=== PATIENT | female | born 1980 | race African-American/Black ===

== ENCOUNTER 2018-01-18 00:12 | Emergency (ER) | payer OTHER ==
[~2018-01-18] VITALS: Ht 162.6 cm; Wt 123.8 kg
--- NOTE | 2018-01-18 00:37 | ED.ADGEN ---
Past History Past Medical History: Anemia, Hypertension, STD, Other Past Surgical History: Adult General Chief Complaint Chief Complaint ".. My back is on fire.. I got this area on my back ... that feels like someone is pouring hot burning liquid on my back.. it rivera.. it itches.. I can't even let touch the clothes.. can't have anything against it..." HPI HPI Patient is a 37 year old female who presents with the above hx complaints. Pt. has developed severe back pain, along L 1 Dermatone on the Rt. . There is a erythemic red rash developing in this area. Lite touch to area causes severe pain. Pt denies any health problems, except with G6PD drugs. Pt. denies immunosuppression. Recent C- section - 01/03. G3 T3. Pt. recently taken of Procardia for HTN. Pt. is breast feeding. Pt. did have chicken pox as child. No hx travel or specific ill contacts. Pt. get her care at . Review of Systems Review of Systems Constitutional: Denies fever or chills [] Eyes: Denies change in visual acuity, redness, or eye pain [] HENT: Denies nasal congestion or sore throat [] Respiratory: Denies cough or shortness of breath [] Cardiovascular: No additional information not addressed in HPI [] GI: Denies abdominal pain, nausea, vomiting, bloody stools or diarrhea [] : Denies dysuria or hematuria [] Musculoskeletal: complailnts of back pain Integument: Denies rash or skin lesions [] Neurologic: Denies headache, focal weakness or sensory changes [] Endocrine: Denies polyuria or polydipsia [] All other systems were reviewed and found to be within normal limits, except as documented in this note. Family History Family History Non-contributory Current Medications Current Medications Current Medications Medications (Trade) Dose Ordered Sig/Blue Start Time Stop Time Status Last Admin Dose Admin Acyclovir (Zovirax) 800 mg 1X ONCE 01/18/18 01:30 01/18/18 02:00 DC 01/18/18 01:58 800 MG Oxycodone/ Acetaminophen (Percocet 10/325) 1 tab 1X ONCE 01/18/18 02:00 01/18/18 02:01 DC 01/18/18 01:58 1 TAB See Nursing for home meds. Allergies Allergies Allergies Coded Allergies Type Severity Reaction Last Updated Verified Sulfa (Sulfonamide Antibiotics) Allergy Unknown 01/18/18 Yes Uncoded Allergies Type Severity Reaction Last Updated Verified G6PD Allergy Unknown 01/18/18 Physical Exam Physical Exam Constitutional: in acute distress, non-toxic appearance. [] HENT: Normocephalic, atraumatic, bilateral external ears normal, oropharynx moist, no oral exudates, nose normal. [] Eyes: PERRLA, EOMI, conjunctiva normal, no discharge. [] Neck: Normal range of motion, no tenderness, supple, no stridor. [] Cardiovascular:Heart rate regular rhythm, no murmur [] Lungs & Thorax: Bilateral breath sounds clear to auscultation [] Abdomen: Bowel sounds normal, soft, no tenderness, no masses, no pulsatile masses. []Obese. Healing scar. Skin: Warm, dry, no erythema, zoster rash Rt. flank Back: No tenderness, no CVA tenderness. [] Except findings of early zoster Rt. L 1 dermatone. Extremities: No tenderness, no cyanosis, no clubbing, ROM intact, no edema. [] No pain with straight leg lift or along Rt sciatica nerve. Neurologic: Alert and oriented X 3, normal motor function, normal sensory function, no focal deficits noted. [] Psychologic: Affect anxious, judgement normal, mood normal. [] Current Patient Data Lab Results Laboratory Tests Test 01/18/18 00:55 01/18/18 01:20 Urine Collection Type Void Urine Color Straw Urine Clarity Cloudy Urine pH 6.5 Urine Specific [place] 1.015 Urine Protein 30 mg/dl (NEG-TRACE) Urine Glucose (UA) Neg mg/dL (NEG) Urine Ketones (Stick) Neg mg/dL (NEG) Urine Blood Large (NEG) Urine Nitrite Neg (NEG) Urine Bilirubin Neg (NEG) Urine Urobilinogen Dipstick 0.2 mg/dL (0.2 mg/dL) Urine Leukocyte Esterase Mod (NEG) Urine RBC 11-20 /HPF (0-2) Urine WBC 11-20 /HPF (0-4) Urine Squamous Epithelial Cells Mod /LPF Urine Bacteria Few /HPF (0-FEW) Urine Mucus Mod /LPF Urine Trichomonas Present Urine Test Negative (NEG) Total Bilirubin 0.3 mg/dL (0.2-1.0) Direct Bilirubin 0.1 mg/dL (0.0-0.2) Aspartate Amino Transferase (AST) 20 U/L (15-37) Alanine Aminotransferase (ALT) 21 U/L (14-59) Alkaline Phosphatase 90 U/L (46-116) Total Protein 7.5 g/dL (6.4-8.2) Albumin 3.5 g/dL (3.4-5.0) White Blood Count 6.4 x10^3/uL (4.0-11.0) Red Blood Count 4.39 x10^6/uL (3.50-5.40) Hemoglobin 11.3 g/dL (12.0-15.5) L Hematocrit 35.0 % (36.0-47.0) L Mean Corpuscular Volume 80 fL (79-100) Mean Corpuscular Hemoglobin 26 pg (25-35) Mean Corpuscular Hemoglobin Concent 32 g/dL (31-37) Red Cell Distribution Width 15.5 % (11.5-14.5) H Platelet Count 426 x10^3/uL (140-400) H Neutrophils (%) (Auto) 43 % (31-73) Lymphocytes (%) (Auto) 42 % (24-48) Monocytes (%) (Auto) 8 % (0-9) Eosinophils (%) (Auto) 6 % (0-3) H Basophils (%) (Auto) 1 % (0-3) Neutrophils # (Auto) 2.8 x10^3uL (1.8-7.7) Lymphocytes # (Auto) 2.7 x10^3/uL (1.0-4.8) Monocytes # (Auto) 0.5 x10^3/uL (0.0-1.1) Eosinophils # (Auto) 0.4 x10^3/uL (0.0-0.7) Basophils # (Auto) 0.1 x10^3/uL (0.0-0.2) Sodium Level 142 mmol/L (136-145) Potassium Level 3.1 mmol/L (3.5-5.1) L Chloride Level 103 mmol/L (98-107) Carbon Dioxide Level 32 mmol/L (21-32) Anion Gap 7 (6-14) Blood Urea Nitrogen 16 mg/dL (7-20) Creatinine 0.8 mg/dL (0.6-1.0) Estimated GFR (Cockcroft-Gault) 98.2 Glucose Level 99 mg/dL (70-99) Calcium Level 9.3 mg/dL (8.5-10.1) EKG EKG [] Radiology/Procedures Radiology/Procedures [] Course & Med Decision Making Course & Med Decision Making Pertinent Labs and Imaging studies reviewed. (See chart for details). Suspect on set of Zoster- will start Acyclovir 800 every 4 hrs or 5 x day x 7 days. Percocet for severe pain. Reviewed risks if blister appear. Contact precautions. Discussed risks of G6PD reaction. Must follow up. Discussed risks of breast feeding. Tx. Trichomonas after complete the Acyclovir tx. Must follow up the urine cultures, HTN, anemia and hypokalemia with primary. Return if any concerns. [] Final Impression Final Impression 1. Back Pain[] 2. Zoster- Rt L1 Dermatone 3. Trichomonas 4. HTN 6. Anemia 7. Hypokalemia Dragon Disclaimer Dragon Disclaimer This electronic medical record was generated, in whole or in part, using a voice recognition dictation system. NASRA ROBERTSON MD Jan 18, 2018 00:37
[2018-01-18] MEDS ORDERED: ACYCLOVIR 200 MG CAPSULE PO ONE (01:30)
[2018-01-18] MEDS ORDERED: ACYC800T PO (01:34)
[2018-01-18] MEDS ORDERED: OXYC-323 PO (01:35)
[2018-01-18 01:36] LABS: BASO # 0.1 x10^3/uL (0.0-0.2); BASO % 1 % (0-3); EOS # 0.4 x10^3/uL (0.0-0.7); EOS % 6 % (0-3); HEMOGLOBIN 11.3 g/dL (12.0-15.5); LYMPH # 2.7 x10^3/uL (1.0-4.8); LYMPH % 42 % (24-48); MEAN CORPUSCULAR HEMOGLOBIN 26 pg (25-35); MEAN CORPUSCULAR HGB CONC 32 g/dL (31-37); MEAN CORPUSCULAR VOLUME 80 fL (79-100); MONO # 0.5 x10^3/uL (0.0-1.1); MONO % 8 % (0-9); NEUT # 2.8 x10^3uL (1.8-7.7); NEUT % 43 % (31-73); PLATELET COUNT 426 x10^3/uL (140-400); RED BLOOD COUNT 4.39 x10^6/uL (3.50-5.40); RED CELL DISTRIBUTION WIDTH 15.5 % (11.5-14.5); WHITE BLOOD COUNT 6.4 x10^3/uL (4.0-11.0)
[2018-01-18 01:39] LABS: CALCIUM 9.3 mg/dL (8.5-10.1); CREATININE 0.8 mg/dL (0.6-1.0); GFR 98.2; POTASSIUM 3.1 mmol/L (3.5-5.1)
[2018-01-18] MEDS ORDERED: oxyCODONE/APAP 10/325 1 TAB TABLET PO ONE (02:00)
[2018-01-18 02:02] LABS: ALBUMIN 3.5 g/dL (3.4-5.0); DIRECT BILIRUBIN 0.1 mg/dL (0.0-0.2); TOTAL BILIRUBIN 0.3 mg/dL (0.2-1.0); TOTAL PROTEIN 7.5 g/dL (6.4-8.2)
[2018-01-18 02:10] LABS: BILIRUBIN,URINE NEG (NEG); CLARITY,URINE CLOUDY; COLOR,URINE STRAW; GLUCOSE,URINE NEG (NEG); UROBILINOGEN,URINE 0.2 mg/dL (0.2 mg/dL)
[2018-01-18 02:11] LABS: BACTERIA,URINE FEW /HPF (0-FEW); NITRITE,URINE NEG (NEG); SQUAMOUS EPITHELIAL CELL,UR MOD /LPF; TRICHOMONAS,URINE PRESENT; U PREG PATIENT NEGATIVE (NEG)
[2018-01-18] MEDS ORDERED: METR70GE14 VG (02:28)
[2018-01-18 02:51] VITALS: BP 171/109
== END 2018-01-18 03:01 | disposition home or self-care (01) ==
LOC: ER 00:12
DX: O90.89 Other complications of the puerperium, not elsewhere classified (principal); M54.5 Low back pain; O98.53 Other viral diseases complicating the puerperium; A59.9 Trichomoniasis, unspecified; O90.81 Anemia of the puerperium; O16.5 Unspecified maternal hypertension, complicating the puerperium; E87.6 Hypokalemia; Z98.890 Other specified postprocedural states; Z88.2 Allergy status to sulfonamides
CPT/HCPCS: 36415; 80048; 80076; 81001; 81025; 85025; 87086; 99284

== ENCOUNTER 2018-04-20 23:32 | Emergency (ER) | payer OTHER ==
[~2018-04-20] VITALS: Ht 162.6 cm; Wt 127.0 kg
[~2018-04-20 23:32] MED LIST: ACYC800T PO; METR70GE14 VG; OXYC-323 PO
--- NOTE | 2018-04-21 | PHYS DOC ---
Past History Past Medical History: Anemia, Diabetes, Hypertension, STD, Other Past Surgical History: Alcohol Use: None Drug Use: None Adult General Chief Complaint Chief Complaint: MECHANICAL FALL HPI HPI Patient is a 37-year-old female who presents with complaint of headache and right shoulder pain after slipping and falling down stairs yesterday. Patient indicates that she had struck the back of her head against one of the steps. She denies any loss of consciousness but does indicate that she has a bad headache at this time. Patient also complains of pain in her right shoulder that she rates as being moderate, stating that pain is significantly worsened with movement of the shoulder. She states that when she fell she reached up and grabbed the handrail which she thinks was what had injured her shoulder. Review of Systems Review of Systems Constitutional: Denies fever or chills [] Eyes: Denies change in visual acuity, redness, or eye pain [] Respiratory: Denies cough or shortness of breath [] Cardiovascular: No additional information not addressed in HPI [] GI: Denies abdominal pain, nausea, vomiting [] Musculoskeletal: Complains of right shoulder pain and mild mid back pain. [] Neurologic: Complains of headache[] Allergies Allergies Allergies Coded Allergies Type Severity Reaction Last Updated Verified Sulfa (Sulfonamide Antibiotics) Allergy Unknown 01/18/18 Yes Uncoded Allergies Type Severity Reaction Last Updated Verified G6PD Allergy Unknown 01/18/18 Physical Exam Physical Exam Constitutional: Well developed, well nourished, no acute distress, non-toxic appearance. [] HENT: Normocephalic, atraumatic, bilateral external ears normal, oropharynx moist, no oral exudates, nose normal. [] Eyes: PERRLA, EOMI, conjunctiva normal, no discharge. [] Neck: Normal range of motion, no tenderness, supple. [] Cardiovascular:Heart rate regular rhythm [] Lungs & Thorax: Bilateral breath sounds clear to auscultation [] Skin: Warm, dry, no erythema, no rash. [] Back: No spinous point tenderness. [] Extremities: Right shoulder demonstrates decreased range of motion with tenderness anteriorly and posteriorly. [] Current Patient Data Vital Signs Vital Signs Date Time Temp Pulse Resp B/P (MAP) Pulse Ox O2 Delivery O2 Flow Rate FiO2 04/20/18 23:42 98.3 99 22 97 Room Air EKG EKG [] Radiology/Procedures Radiology/Procedures [] Impressions: CT head without contrast demonstrates no acute intracranial abnormalities. X- ray of the right shoulder demonstrates no acute bony abnormalities. Course & Med Decision Making Course & Med Decision Making Pertinent Labs and Imaging studies reviewed. (See chart for details) Patient placed in right arm sling by ER nurse. Noemi Disclaimer Noemi Disclaimer This electronic medical record was generated, in whole or in part, using a voice recognition dictation system. Departure Departure: Impression: Primary Impression: Sprain of right shoulder Additional Impression: Closed head injury Disposition: HOME, SELF-CARE Condition: STABLE Referrals: PCP,NO (PCP) Patient Instructions: Head Injury, Adult, Shoulder Sprain Scripts Naproxen (NAPROSYN) 500 Mg Tablet 1 TAB PO BID PRN for PAIN, #20 TAB Prov: KATI AGUAYO Jr. DO 04/21/18 Tramadol Hcl (TRAMADOL HCL) 50 Mg Tablet 50 MG PO PRN Q6HRS PRN for PAIN, #10 TAB Prov: KATI AGUAYO Jr. DO 04/21/18 Problem Qualifiers Primary Impression: Sprain of right shoulder Encounter type: initial encounter Shoulder sprain type: unspecified sprain Qualified Codes: S43.401A - Unspecified sprain of right shoulder joint, initial encounter Additional Impression: Closed head injury Encounter type: initial encounter Qualified Codes: S09.90XA - Unspecified injury of head, initial encounter KATI AGUAYO Jr. DO Apr 21, 2018 00:00
--- NOTE | 2018-04-21 00:32 | RAD ---
INDICATION: Fall 04/19/18, hit posterior head, severe headache COMPARISON: None. TECHNIQUE: Axial CT images obtained through the head without intravenous contrast. One or more of the following individualized dose reduction techniques were utilized for this examination: 1. Automated exposure control; 2. Adjustment of the mA and/or kV according to patient size; 3. Use of iterative reconstruction technique. FINDINGS: No intracranial hemorrhage. No midline shift. Basal cisterns patent. Ventricles and sulci are unremarkable. No acute osseous abnormality. Orbits and paranasal sinuses unremarkable. IMPRESSION: 1. No acute intracranial hemorrhage. Electronically signed by: Humberto Parisi MD (04/21/2018 12:29 AM) [id number]
[2018-04-21] MEDS ORDERED: NAPR-683 PO (00:44)
[2018-04-21] MEDS ORDERED: TRAM50TA PO (00:44)
[2018-04-21 01:00] VITALS: BP 180/92
--- NOTE | 2018-04-21 07:52 | RAD ---
Examination: SHOULDER 2+V RIGHT History: Fall 04/19/18, right shoulder pain Comparison/Correlation: None Findings: Total 3 images of the right shoulder were obtained. Joint spaces are normal. No acute fracture or bony destructive change. Soft tissues are normal. No degenerative changes. Right lung apex is unremarkable. Impression: No fracture. Electronically signed by: Homero Gracia MD (04/21/2018 7:49 AM) [facility]
== END 2018-04-21 01:05 | disposition home or self-care (01) ==
LOC: ER 23:32
DX: S09.90XA Unspecified injury of head, initial encounter (principal); S43.401A Unspecified sprain of right shoulder joint, initial encounter; I10 Essential (primary) hypertension; E11.9 Type 2 diabetes mellitus without complications; Z88.2 Allergy status to sulfonamides; Z86.2 Personal history of diseases of the blood and blood-forming organs and certain disorders involving the immune mechanism; W10.9XXA Fall (on) (from) unspecified stairs and steps, initial encounter; Y93.89 Activity, other specified; Y92.89 Other specified places as the place of occurrence of the external cause; Y99.8 Other external cause status
CPT/HCPCS: 70450; 73030; 99284-25